=== PATIENT | female | born 1965 | race Caucasian/White ===

== ENCOUNTER → 2016-11-25 | Outpatient (CLI) | payer BC | LOC: BHSO 14:47 | DX: F41.1 Generalized anxiety disorder (principal) ==

== ENCOUNTER → 2017-02-08 | Outpatient (CLI) | payer BC | LOC: BHSO 15:46 | DX: F31.81 Bipolar II disorder (principal) ==

== ENCOUNTER → 2017-04-09 | Outpatient (CLI) | payer BC | LOC: BHSO 11:30 | DX: F43.10 Post-traumatic stress disorder, unspecified (principal) ==

== ENCOUNTER → 2017-07-09 | Outpatient (CLI) | payer BC | LOC: BHSO 11:07 | DX: F43.10 Post-traumatic stress disorder, unspecified (principal) ==

== ENCOUNTER → 2017-11-12 | Outpatient (CLI) | payer BC | LOC: BHSO 15:40 | DX: F43.10 Post-traumatic stress disorder, unspecified (principal) | CPT/HCPCS: G0463 ==

== ENCOUNTER → 2018-03-07 | Outpatient (CLI) | payer BC | LOC: BHSO 08:11 | DX: F43.10 Post-traumatic stress disorder, unspecified (principal) | CPT/HCPCS: G0463 ==